=== PATIENT | female | born 1945 | race Caucasian/White ===

== ENCOUNTER 2023-06-15 13:12 | Emergency (ER) | payer MEDICARE ==
[~2023-06-15] VITALS: Ht 160 cm; Wt 86.9 kg
[~2023-06-15 13:12] MED LIST: CALCIUM + D3 E1 EACH PO; GLUCOSAMINE CH PO; LEVOTHYROXINE112 MCG PO; METOPROLOL SUCC50 MG PO; MULTIVITAMINS1 EAC7 PO; TRANYLCYPROMINE10 MG PO; VITAMIN B-6100 MG PO; VITAMIN B122500 MC1 PO; VITAMIN C500 M4 PO; VITAMIN D3400 UNIT PO
[2023-06-15] MEDS ORDERED: LEVOTHYROXINE100 MC2 PO (14:34)
[2023-06-15 14:53] LABS: BILIRUBIN, URINE NEGATIVE (negative); BLOOD/HGB, URINE LARGE (Negative); KETONE, URINE NEGATIVE (Negative); LEUK ESTERASE, URINE NEGATIVE (negative); NITRITE, URINE NEGATIVE (negative); PH, URINE 5.5 (5-7)
[2023-06-15 14:59] LABS: BACTERIA, URINE 1+ /hpf (negative); CASTS, URINE NONE SEEN \\lpf; CRYSTALS, URINE NONE SEEN (0-1+); EPITHELIAL CELLS, URINE SQUAMOUS 1+ /lpf (0-1+)
[2023-06-15 15:00] LABS: COLLECTION TYPE, URINE CLEAN CATCH; REFLEX CULTURE, URINE Yes (No)
[2023-06-15 15:05] LABS: BASOPHILS 0.9 % (0-2); EOSINOPHILS 0.6 % (0-6); HEMATOCRIT 41.9 % (35.0-50.0); LYMPHOCYTES 23.2 % (24-44); MCHC 33.5 g/dl (30-36); MCV 89.6 fl (81-99); MONOCYTES 5.9 % (0-12); NEUTROPHILS 69.4 % (39-80); PLATELET COUNT 276 K/uL (140-440); RBC 4.68 M/ul (4.3-5.7); RDW 13.7 (10.5-15.0)
[2023-06-15 15:24] LABS: ALBUMIN 3.6 g/dL (3.4-5.0); ALBUMIN/GLOBULIN RATIO 0.9 (1.1-2.4); ANION GAP 13.8 (7-21); BILIRUBIN, TOTAL 0.5 ng/dL (0.2-1.0); BUN/CREATININE RATIO 16.66 (6.0-28.6); CALCIUM 9.6 mg/dL (8.5-10.1); CREATININE, SERUM 0.78 mg/dL (0.55-1.02); POTASSIUM 3.8 mmol/L (3.5-5.1); PROTEIN, TOTAL 7.6 g/dL (6.4-8.2)
[2023-06-15] MEDS ORDERED: CEFDINIR300 MG PO (17:38)
[2023-06-15 18:02] VITALS: BP 147/74
== END 2023-06-15 18:02 | disposition home or self-care (01) ==
LOC: ED 13:12
PROVIDERS: Emergency Medicine
DX: N28.89 Other specified disorders of kidney and ureter (principal); E03.9 Hypothyroidism, unspecified; Z88.1 Allergy status to other antibiotic agents
CPT/HCPCS: 36415; 74176; 80053; 81001; 85025; 87088; 99284-25

== ENCOUNTER 2023-08-05 10:12 | Emergency (ER) | payer MEDICARE ==
[~2023-08-05] VITALS: Ht 160 cm; Wt 88.7 kg
[~2023-08-05 10:12] MED LIST changes: +CEFDINIR300 MG PO; +LEVOTHYROXINE100 MC2 PO
[2023-08-05] MEDS ORDERED: PERCOCET 5-3251 EACH (10:32)
[2023-08-05] MEDS ORDERED: FENTANYL1 EAC7 (10:34)
[2023-08-05 10:52] LABS: BASOPHILS 3.5 % (0-2); EOSINOPHILS 2.9 % (0-6); HEMATOCRIT 37.7 % (35.0-50.0); HEMOGLOBIN 12.8 g/dL (12.0-18.0); MCH 30.3 (27-36); MCHC 34.1 g/dl (30-36); MCV 88.9 fl (81-99); MONOCYTES 6.3 % (0-12); NEUTROPHILS 75.3 % (39-80); PLATELET COUNT 258 K/uL (140-440); RBC 4.24 M/ul (4.3-5.7); RDW 13.9 (10.5-15.0)
[2023-08-05 11:05] LABS: ALBUMIN 3.3 g/dL (3.4-5.0); ALBUMIN/GLOBULIN RATIO 0.97 (1.1-2.4); ANION GAP 13.1 (7-21); BILIRUBIN, TOTAL 0.5 ng/dL (0.2-1.0); CALCIUM 9.3 mg/dL (8.5-10.1); CREATININE, SERUM 0.8 mg/dL (0.55-1.02); POTASSIUM 4.1 mmol/L (3.5-5.1); PROTEIN, TOTAL 6.7 g/dL (6.4-8.2)
[2023-08-05] MEDS ORDERED: GOLYTELY SOLU4000 ML PO (11:53)
[2023-08-05] MEDS ORDERED: CONSTULOSE10 GM/15 M PO (11:53)
[2023-08-05 12:38] VITALS: BP 131/53
== END 2023-08-05 12:39 | disposition home or self-care (01) ==
LOC: ED 10:12
PROVIDERS: Internal Medicine
DX: K59.03 Drug induced constipation (principal); T40.2X5A Adverse effect of other opioids, initial encounter; C64.9 Malignant neoplasm of unspecified kidney, except renal pelvis; E03.9 Hypothyroidism, unspecified; Z88.1 Allergy status to other antibiotic agents; Z79.899 Other long term (current) drug therapy
CPT/HCPCS: 36415; 74176; 80053; 85025; J1170; J2765; J7030